=== PATIENT | male | born 1970 | race Caucasian/White ===

== ENCOUNTER 2019-04-10 11:52 | Emergency (ER) | payer OTHER ==
[~2019-04-10] VITALS: Ht 185.4 cm; Wt 79.4 kg
[2019-04-10] MEDS ORDERED: CELEXA10 MG PO (12:06)
[2019-04-10] MEDS ORDERED: HUMIRA40 MG/0.4 SUBQ (12:07)
[2019-04-10] MEDS ORDERED: RAYOS5 MG PO (12:07)
[2019-04-10 12:40] LABS: ABSOLUTE BASOPHILS 0.1 thou/uL (0.0-0.2); ABSOLUTE LYMPHOCYTES 1.9 thou/uL (0.8-5.3); ABSOLUTE MONOCYTES 0.7 thou/uL (0.0-1.2); ABSOLUTE NEUTROPHILS 8.2 thou/uL (1.6-8.1); BASOPHILS 0.6 %; EOSINOPHILS 0.2 %; HEMATOCRIT 45.6 % (42.0-52.0); HEMOGLOBIN 15.9 gm/dL (14.0-18.0); LYMPHOCYTES 17.8 %; MCH 31.5 pg (26.0-34.0); MCHC 34.9 g/dL (28.0-37.0); MCV 90.1 fL (80.0-100.0); MONOCYTES 6.5 %; MPV 9.2 fl. (7.2-11.1); NUCLEATED RBCS 0 /100WBC; PLATELET COUNT* 233 thou/uL (150-400); POLYS 74.9 %; RBC 5.06 mil/uL (4.50-6.00); RDW-CV 13.6 % (10.5-14.5); WBC 10.9 thou/uL (4.0-11.0)
[2019-04-10 12:50] LABS: CALCIUM 8.7 mg/dL (8.5-10.1); CREATININE 1.1 mg/dL (0.6-1.3); POTASSIUM 4.4 mmol/L (3.5-5.1); PROTIME 10.3 Seconds (9.20-11.50)
[2019-04-10 12:55] LABS: ALBUMIN 4.4 g/dL (3.4-5.0); TOTAL BILIRUBIN 0.3 mg/dL (<0.1-1.0); TOTAL PROTEIN 7.6 g/dL (6.4-8.2)
[2019-04-10 14:01] VITALS: BP 162/76
--- NOTE | 2019-04-10 15:24 | EKG ---
[place] [address] ELECTROCARDIOGRAM REPORT Name: JALEN BABIN Room: [facility]#: [id number] Admission: 04/10/19 Attend Phys: Discharge: 04/10/19 Date of : 70 Report #: [id number] THIS REPORT FOR: //name// [facility] ED Test Date: 2019-04-10 Test Time: 12:19:13 Pat Name: JALEN BABIN Department: Room: Gender: M Factory Representative: : 1970 Requested By: Edgar Mcgrath Order Number: [id number] MD: Jefry Roger Measurements Intervals [place] Rate: 52 P: 58 MD: 147 QRS: 47 QRSD: 100 T: 49 QT: 451 QTc: 420 Interpretive Statements Sinus rhythm Abnormal R-wave progression, early transition Baseline wander in lead(s) V2 No previous ECG available for comparison Electronically Signed On 04-10-2019 15:24:04 CDT by Jefry Roger [email or web address] <ELECTRONICALLY SIGNED> By: Jefry Roger MD, FACC 04/10/19 1524 1219 1219 Jefry Roger MD, FACC /EPI
== END 2019-04-10 14:02 | disposition left against medical advice (07) ==
LOC: M.ERS 11:52
PROVIDERS: Emergency Medicine
DX: R20.2 Paresthesia of skin (principal); I10 Essential (primary) hypertension; Z88.5 Allergy status to narcotic agent